=== PATIENT | male | born 1985 | race Two or more races ===

== ENCOUNTER 2025-01-31 17:54 | Emergency (ER) | payer OTHER, SELFPAY ==
--- NOTE | 2025-01-31 18:27 | XR_ITS ---
Examination: Foot, left, 3 views Technique: AP, oblique, lateral views foot, 3 views Date and time of exam: January 31, 2025 at 1736 hours INDICATIONS: Patient fell today with injury to the foot, foot pain FINDINGS: No acute fracture. No dislocation. No foreign body. IMPRESSION: No acute fracture
--- NOTE | 2025-01-31 18:27 | XR_ITS ---
Examination: Knee, right , 3 views Technique: Knee AP, lateral, oblique 3 views Date and time of exam: January 31, 2025 at 1732 hours INDICATIONS: Patient fell today with injury to the knee, knee pain. FINDINGS: No fracture or dislocation. No foreign body IMPRESSION: No fracture or dislocation. Small knee effusion
--- NOTE | 2025-01-31 18:33 | EDNOTE_ITS ---
ED Fall Injury RME/HPI General Chief Complaint: Fall Stated Complaint: TOE PAIN ON LEFT FOOT, RIGHT KNEE PAIN S/P FALL Time Seen by Provider: 01/31/25 18:10 Arrival date/time: 01/31/25 17:54 RME / HPI RME / HPI Narrative: This section includes all my notes and documentations, including HPI, PE, and ED course. Binu Aguilar MD HPI: 39-year-old male here to be evaluated after almost falling the day before yesterday after tripping. No head injury. He reports right knee pain and left foot pain. No other complaints. ROS: All negative except as documented in HPI. Physical Exam: General: Alert and oriented. No acute distress. Eyes: Conjunctivae and lids clear. ENT: No signs of head trauma. Neck: Supple. Heart: RRR. Lungs: No respiratory distress. Good air movement. No rhonchi, wheezing, rales. Chest: No tenderness. Abdomen: Soft and nontender. Normal bowel sounds. No distension. No rebound or guarding. Back: No tenderness. Skin: Warm and dry. Neuro: Alert and oriented X 3. Cranial Nerves II-XII grossly intact. No peripheral motor deficits. Musculoskeletal: Equivocal right knee tenderness and left foot tenderness medially. All other major joints and bones are not tender with no limited ROM. I reviewed all diagnostic test results. My interpretation of the right knee x-rays and left foot x-rays is no acute fracture. At this point, diagnoses include right knee sprain and left foot sprain. Recommended a trial of conservative treatment. Based on my best medical judgment, made decision no further evaluation or treatment indicated at this time. Patient understands and agrees to the discharge instructions customized and printed, see below. Discharge Instructions from Dr. Aguilar printed for you: 1. Fortunately, there is no broken bone. 2. For rest needed to help heal your left foot sprain and right knee sprain, minimal weightbearing and elevate above the waist level for 3 days. 3. Apply ice for 20 minutes every 2-3 hours today and tomorrow. 4. Ibuprofen 800 mg every 6-8 hours today and tomorrow to decrease inflammation then as needed. 5. Flexeril as needed. 6. See a private doctor on 02/04/2025 for recheck and further care. If not significant better, ask for more imaging studies to make sure you do not have any serious underlying injuries. 7. Seek immediate medical care with worsening or with any concerns. Binu Aguilar MD Related Data Previous Rx's ?Medication ?Instructions ?Recorded cyclobenzaprine 5 mg tablet 5 mg PO TID PRN muscle spa sm #15 01/31/25 tabs ibuprofen 800 mg tablet 800 mg PO Q8H PRN pain #30 t abs 01/31/25 Allergies Allergy/AdvReac Type Severity Reaction Status Date / Time cephalexin (From Keflex) Allergy Verified 01/31/25 17:58 Course Quality Measures none Orders Category Date Time Status XR foot comp LT min 3V Stat Exams 01/31/25 18:27 Completed XR knee RT 3V Stat Exams 01/31/25 18:27 Completed Vital Signs Vital signs: Vital Signs Temperature 98.1 F 01/31/25 20:06 Pulse Rate 85 01/31/25 20:06 Respiratory Rate 18 01/31/25 20:06 Blood Pressure 131/86 H 01/31/25 20:06 Pulse Oximetry (%) 98 01/31/25 20:06 Oxygen Delivery Method Room Air 01/31/25 20:06 Fall Patient data External records reviewed:: None Clinical information provided by:: patient Social determinants that could affect healthcare access:: none Patient has the following chronic illnesses:: None How is presenting disease/condition affected by chronic disease/condition?: no chronic disease Evaluation data The following diagnostics were reviewed and interpreted by me:: radiology exam(s) Lab and/or radiology exams considered but not ordered:: None Interpretation Summary: Right knee x-rays and left foot x-rays showed no fracture. Medications / Prescriptions Medications or Prescriptions considered but not ordered:: None Medication administrations:: None Consultations Consultation(s) initiated? (list below): No Diagnosis Fall Differential Diagnosis: other (Fracture/contusion/sprain/strain of R knee and L foot) Most likely diagnosis given after review of the tests above:: Right knee sprain and left foot sprain Admission Indicated Admission indicated?: not indicated Explain why admission is indicated or not indicated:: There is no indication for admission. Admission Request Was there a request for admission?: No Disposition Plan Disposition Plan: Discharge Discharge Attestation Discharge Attestation: The patient and all family members were given an opportunity to ask questions and understood the discharge instructions. Discharge instructions specifically effects, indications for sooner follow up or return to the emergency department, and the expected course of current diagnosis. Patient condition: Stable Discharge Plan Plan Patient Disposition: HOME (Self Care) Prescriptions/Referrals Prescriptions/Med Rec: New ibuprofen 800 mg tablet 800 mg PO Q8H PRN (Reason: pain) Qty: 30 0RF cyclobenzaprine 5 mg tablet 5 mg PO TID PRN (Reason: muscle spasm) Qty: 15 0RF Referrals: No Primary/Family,Physician [Primary Care Provider] - In 1 week Problem List Clinical Impression: Right knee sprain, Sprain of left foot Patient/Caregiver Discharge Instructions Discharge Activity: activity as tolerated Education Materials: ED Foot Sprain, ED Knee Sprain Additional Instructions: Discharge Instructions from Dr. Aguilar printed for you: 1. Fortunately, there is no broken bone. 2. For rest needed to help heal your left foot sprain and right knee sprain, minimal weightbearing and elevate above the waist level for 3 days. 3. Apply ice for 20 minutes every 2-3 hours today and tomorrow. 4. Ibuprofen 800 mg every 6-8 hours today and tomorrow to decrease inflammation then as needed. 5. Flexeril as needed. 6. See a private doctor on 02/04/2025 for recheck and further care. If not significant better, ask for more imaging studies to make sure you do not have any serious underlying injuries. 7. Seek immediate medical care with worsening or with any concerns. Print Language: Kinyarwanda Stand Alone Forms: [employer] Info., Patient Portal Info Letter
[2025-01-31 20:06] VITALS: BP 131/86; PULSE 85; RESP 18; TEMP 36.7; O2SAT 98
[2025-01-31 20:47] VITALS: RESP 18
--- NOTE | 2025-01-31 20:47 | PC.NURSE ---
FOOD PROVIDED TO PT.
== END 2025-01-31 20:48 | disposition home or self-care (01) ==
PROVIDERS: Emergency Provider Emergency Medicine
DX: S83.91XA Sprain of unspecified site of right knee, initial encounter (principal); S93.602A Unspecified sprain of left foot, initial encounter; W01.0XXA Fall on same level from slipping, tripping and stumbling without subsequent striking against object, initial encounter
CPT/HCPCS: 73562; 73630; 99283